=== PATIENT | female | born 2000 | race Caucasian/White ===

== ENCOUNTER 2020-06-29 17:32 | Emergency (ER) | payer OTHER ==
[2020-06-29 18:01] VITALS: BP 136/77; PULSE 66; TEMP 98.8; BMI 24.7
[2020-06-29 18:05] LABS: HCG,QUALITATIVE URINE Negative
[2020-06-29 18:19] LABS: EPITHELIAL CELLS FEW /hpf
[2020-06-29] MEDS ORDERED: NITROFURANTOIN MACROCRYSTAL 50 MG CAPSULE (FP) PO SCH (20:45)
[2020-06-29] MEDS ORDERED: NITROFURANTOIN MACROCRYSTAL 50 MG CAPSULE (FP) ONE (20:50)
== END 2020-06-29 20:48 | disposition home or self-care (01) ==
LOC: FER 17:32
DX: R10.9 Unspecified abdominal pain (principal)
CPT/HCPCS: 76830-TC; 81003; 81015; 84703; 99284-25

== ENCOUNTER 2022-04-27 22:29 | Emergency (ER) | payer OTHER ==
[2022-04-27 23:07] VITALS: BP 128/84; PULSE 128; RESP 18; TEMP 99.3; BMI 30.2
== END 2022-04-27 23:26 | disposition left against medical advice (07) ==
LOC: FER 22:29
DX: J00 Acute nasopharyngitis [common cold] (principal)
CPT/HCPCS: 99281-25